=== PATIENT | female | born 1980 | race Caucasian/White ===

== ENCOUNTER → 2019-12-31 10:54 | Outpatient (CLI) | payer MEDICAID, SELFPAY ==
[2019-12-31 14:07] LABS: Absolute Lymphocyte Count 2.48 X10^3/uL (0.83-4.51); Absolute Neutrophil Count 7.2 X10^3/uL (2.0-7.7); Basophil# 0.04 X10^3/uL; Basophil% 0.4 % (0-1); Eosinophil# 0.11 X10^3/uL; Hematocrit 39.2 % (37-47); Hemoglobin 12.8 g/dL (12.0-15.0); Lymphocyte # 2.48 X10^3/ul (4.0); Lymphocyte % 23.4 % (19-41); Mean Corp Hgb Conc 32.7 g/dL (32-36); Mean Corpuscular Hgb 30.9 pg (27.0-32.0); Mean Corpuscular Volume 94.7 fL (81-99); Mean Platelet Vol. 11.8 fl (6.2-12.0); Monocyte# 0.72 X10^3/uL; Monocyte% 6.8 % (0-10); NRBC Flagged by Analyzer 0 % (0-5); Neutrophil # 7.18 X10^3/uL (2.7-7.7); Neutrophil % 67.9 % (47-70); Platelet Count 208 K/mm3 (150-450); RBC Distribution Width SD 41.8 fl (35.1-43.9); Red Blood Count 4.14 M/mm3 (4.2-5.4); White Blood Count 10.6 K/mm3 (4.4-11.0)
[2019-12-31 14:15] LABS: Color, Urine Yellow (Yellow); Glucose, Dipstick Normal (Normal); Ketone-Dipstick Negative (Negative); Leukocyte Esterase-Dipstick Negative /ul (Negative); Nitrite-Dipstick Negative (Negative); Occult Blood-Urine Negative /ul (Negative); Protein-Dipstick Negative (Negative); Specific Gravity, Urine 1.015 (1.002-1.030); Urine Bilirubin Dipstick Negative (Negative); Urine Clarity Sl. Cloudy (Clear); Urine Urobilinogen Normal (Normal); Urine pH 6.5 (5.0 - 8.0)
[2019-12-31 14:24] LABS: Amphetamine Urine VISTA NEGATIVE (<1000 ng/mL); Barbiturate Urine VISTA NEGATIVE (< 200 ng/mL); Benzodiazepine Urine VISTA NEGATIVE (< 200 ng/mL); Cocaine Urine VISTA NEGATIVE (< 300 ng/mL); Ecstacy Urine VISTA NEGATIVE (< 500 ng/mL); Methadone Urine VISTA NEGATIVE (< 300 ng/mL); PCP Urine VISTA NEGATIVE (< 25 ng/mL); THC Urine VISTA POSITIVE (< 50 ng/mL); Vista UDS pH Range 6
[2019-12-31 15:15] LABS: Thyroid Stim Hormone (TSH) 1.63 uIU/mL (0.358-3.74)
[2019-12-31 16:19] LABS: Chlamydia Trachomatis by PCR Negative (Negative); Neisserai gonorrhoeae by PCR Negative (Negative); Probe Check PASS; Sample Adequacy Control PASS; Specimen Processing Control PASS
[2020-01-01 10:34] LABS: HIV - WCH Non-Reactive (Nonreactive); Hepatitis B Surface Antigen Non-Reactive (Nonreactive); Hepatitis C Antibody Non-Reactive (Nonreactive); Rubella IgG 23.2 IU/mL
[2020-01-07 02:00] LABS: Prenatal RPR NONREACTIVE (NONREACTIVE)
== END ==
PROVIDERS: Visit Provider Obstetrics & Gynecology
DX: Z34.81 Encounter for supervision of other normal pregnancy, first trimester (principal)
CPT/HCPCS: 36415; 80307; 81002; 84443; 85025; 86703; 86762; 86803; 87340; 87491; 87591

== ENCOUNTER → 2020-04-22 | Outpatient (CLI) | payer MEDICAID, SELFPAY ==
[2020-04-22 11:28] LABS: Hemoglobin 11.4 g/dL (12.0-15.0); Mean Corp Hgb Conc 31.7 g/dL (32-36); Mean Corpuscular Hgb 29.7 pg (27.0-32.0); Mean Corpuscular Volume 93.8 fL (81-99); Mean Platelet Vol. 11.2 fl (6.2-12.0); Platelet Count 191 K/mm3 (150-450); RBC Distribution Width CV 12.8 % (11.6-14.6); RBC Distribution Width SD 43.5 fl (35.1-43.9); Red Blood Count 3.84 M/mm3 (4.2-5.4); White Blood Count 8.5 K/mm3 (4.4-11.0)
[2020-04-22 11:37] LABS: Glucose Challenge Gest 1H 50g 119 mg/dL (70-140)
== END | disposition home or self-care (01) ==
PROVIDERS: Visit Provider Obstetrics & Gynecology
DX: Z34.82 Encounter for supervision of other normal pregnancy, second trimester (principal)
CPT/HCPCS: 36415; 82950; 85027

== ENCOUNTER 2020-05-11 10:30 | Emergency (ER) | payer MEDICAID, SELFPAY ==
[2020-05-11 10:31] VITALS: BP 133/77; PULSE 83; RESP 16; TEMP 35.9; O2SAT 99; BMI 31.3
--- NOTE | 2020-05-11 10:56 | ED.VIS.DENTA ---
History of Present Illness Chief Complaint: Dental Informant: Patient Onset: Days Context: Sudden Onset Timing: Continuous Quality: Pain and facial swelling Location: Tooth #12 Current Severity: Mild Maximum Severity: Severe Worsened by: Cold liquids Associated Symptoms: Fever, Facial Swellling, - - Erythema left side of face Narrative: Patient is a 40-year-old woman who is 30 weeks gestation and presents because of dental pain that has not improved that is associated with facial swelling and redness that was not noted yesterday when she was seen by dentist. She had dental x-rays are revealed infection involving tooth #12. She denies difficulty opening or closing her mouth completely. She denies change in voice. She denies difficulty breathing. She has no history medic fever, heart murmur, SBE or being immune suppressed. She states that she was told she will need root canal. Dentist was hoping to perform this after she delivers. Prior similar symptoms: Yes Recent Illness/Hospitalization: Yes - Past Medical History (1) Dental abscess Status: Acute Past Medical History - Allergies and Home Meds Allergies/Adverse Reactions: Allergies No Known Allergies Allergy (Verified 05/11/20 10:31) Primary Care Physician: Care Physician,No Primary [Primary Care Provider] - Prior records reviewed: No Surgical History: noncontributory Lives: With Family Smoking Status: Unknown if ever smoked Alcohol: None Drugs: None Review of Systems General: Denies: Chills, Fever, Malaise, Subjective, Sweats Eyes: Denies: Visual changes - bilaterally, Blurred Vision - bilaterally ENT: Denies: Bilateral ear pain, Rhinorrhea, Sore throat Cardiovascular: Denies: Chest pain, Palpitations Respiratory: Denies: Dyspnea, Cough, Dyspnea on exertion Gastrointestinal: Denies: Nausea, Vomiting Musculoskeletal: Denies: Myalgias, Arthralgias, Neck pain Skin: Reports: Rash. Denies: Abscess, Abrasions, Wounds Neurological: Denies: Headache, Weakness, Parasthesia, Numbness Psych: Denies: Depression, Anxiety Hematologic: Denies: Easy bruising, Easy bleeding Allergy: Denies: Uticaria, Swelling of the mouth, Swelling of the tongue Physical Exam Vital Signs/Narrative: Vital Signs Temp Pulse Resp BP Pulse Ox 05/11/20 10:31 96.6 F L 83 16 133/77 H 99 Inital Vital Signs reviewed: Yes General: Well nourished, Well developed Head: Normocephalic, Atraumatic, - - There is swelling of the left side of the face with erythema. ENT: Moist mucous membranes, No nasal trauma, No rhinorrhea, Sinus tenderness - Maxillary, TM's clear. Negative for: Nasal congestion, TM erythema left, TM erythema right Mouth/Throat: Normal inspection lips/gums, Normal oral mucosa, No focal abscess, Normal posterior oropharynx, No sublingual edema, Normal Stensen's duct, Dentral fracture, Focal dental decay, -. Negative for: No dental tenderness, Apthous ulcer, Dental trauma, Dental avulsion, Focal gum swelling, Gingivitis Neck: Supple, No lymphadenopathy, Nontender, No JVD Cardiovascular: Regular rate, Regular rhythm, No murmurs, Normal S1, Normal S2 Respiratory: No distress, CTA bilaterally, Chest nontender Rectal: Deferred Back: Nontender, Normal Inspection Extremities: Nontender, No edema Skin: Normal color, Rash - Left-sided facial erythema and soft tissue swelling Neurological: Alert, Oriented x3, Cranial nerves II-XII grossly intact, Normal Strength, Normal Sensation, Normal Gait Psychological: Normal affect Diagnostic/Tx/Re-eval Laboratory Results 05/11/20 05/11/20 10:55 10:55 WBC 11.0 RBC 3.92 L Hgb 11.6 L Hct 36.1 L MCV 92.1 MCH 29.6 MCHC 32.1 RDW Std Deviation 43.8 RDW Coeff of Lupe 13.0 Plt Count 169 MPV 10.5 Immature Gran % (Auto) 0.500 Neut % (Auto) 80.9 H Lymph % (Auto) 12.2 L Tompkins % (Auto) 5.8 Eos % (Auto) 0.3 Baso % (Auto) 0.3 Absolute Neuts (auto) 8.9 H Absolute Lymphs (auto) 1.34 Nucleated RBC % 0 Sodium 137 Potassium 3.8 Chloride 106 Carbon Dioxide 24.0 Anion Gap 7 BUN 5 L Creatinine 0.68 Estim Creat Clear Calc 96.86 Est GFR (MDRD) Af Amer 125 Est GFR (MDRD) Non-Af 103 BUN/Creatinine Ratio 7.4 L Glucose 144 H Calcium 8.9 CBC and basic metabolic panel are unremarkable except for a blood sugar of 144. - Medical Decision Making She has a dental abscess. Dr. Shin was paged. He apparently does not care for patients with care source any longer. Plan is IV antibiotics blood work. If CBC is markedly elevated will contact dentist that saw her yesterday otherwise will have her continue antibiotics and prescribe pain medicine. NSAIDs are contraindicated since she is in her third trimester . Spoke with the dentist who cared for her yesterday [facility]. Contacted the [place] office at [phone]. If patient gets worse and has difficulty opening her mouth or difficulty swallowing she is to go to the nearest emergency room with referral to oral maxillofacial surgery. If she gets worse and there is no compromise of airway will be seen at the [facility] office. Regardless she would like patient to contact them [place] office tomorrow where she will be to determine how she is doing and determine her treatment options i.e. endodontal surgery versus tooth extraction. ED Disposition - Plan for ED Patient: Disposition: Home or Assisted Living Diagnosis: Apical abscess Instructions: Dental Abscess Prescriptions: Hydrocodone Bitart/Apap 5-325 [[place] 5MG-325MG] 1 tab PO Q6H PRN PRN 3 Days #10 tab PRN Reason: Pain Prescription Printed Referrals: Care Physician,No Primary [Primary Care Provider] - Additional Instructions: 1. Contact your dentist at the [facility] office tomorrow. 2. If there is no improvement and you are having difficulty swallowing or opening your mouth go to the nearest emergency department.
[2020-05-11 11:09] LABS: Absolute Lymphocyte Count 1.34 X10^3/uL (0.83-4.51); Absolute Neutrophil Count 8.9 X10^3/uL (2.0-7.7); Basophil# 0.03 X10^3/uL; Basophil% 0.3 % (0-1); Eosinophil# 0.03 X10^3/uL; Eosinophils% 0.3 % (0-5); Hematocrit 36.1 % (37-47); Hemoglobin 11.6 g/dL (12.0-15.0); Lymphocyte # 1.34 X10^3/ul (4.0); Lymphocyte % 12.2 % (19-41); Mean Corp Hgb Conc 32.1 g/dL (32-36); Mean Corpuscular Hgb 29.6 pg (27.0-32.0); Mean Corpuscular Volume 92.1 fL (81-99); Mean Platelet Vol. 10.5 fl (6.2-12.0); Monocyte# 0.64 X10^3/uL; Monocyte% 5.8 % (0-10); NRBC Flagged by Analyzer 0 % (0-5); Neutrophil # 8.85 X10^3/uL (2.7-7.7); Neutrophil % 80.9 % (47-70); Platelet Count 169 K/mm3 (150-450); RBC Distribution Width SD 43.8 fl (35.1-43.9); Red Blood Count 3.92 M/mm3 (4.2-5.4)
[2020-05-11 11:24] LABS: Anion Gap 7 (5-15); BUN 5 mg/dL (7-18); BUN/Creat Ratio 7.4 RATIO (10-20); Calcium,Total 8.9 mg/dL (8.5-10.1); Chloride 106 mmol/L (98-107); Creatinine, Serum 0.68 mg/dL (0.55-1.02); EST Glomerular Filtration Rate 103 mL/min (>60); Est Glom Filt Rate - Afr Amer 125 mL/min (>60); Estimated Creatinine Clearance 96.86 ml/min; Glucose 144 mg/dL (74-106); Potassium 3.8 mmol/L (3.5-5.1); Sodium Level 137 mmol/L (136-145)
[2020-05-11] MEDS: Morphine 4 MG/ML Syringe IV (11:26)
--- NOTE | 2020-05-11 11:52 | CM.ED ---
Social Work Consult: No PCP Informant: Self Referral Met with patient in room. Introduced self and social insurance administrator role. Patient agreeable to speak with this social insurance administrator. This social insurance administrator broached topic of PCP for patient. Patient confirming to not have an active PCP for the past year. Patient reports intentions of setting up PCP but then I got . Patient reports to be 30 weeks and to be following with Dr. Kaye Padilla with [facility]. Patient reports intent to set up PCP after delivery of patient. This social insurance administrator broached topic of supplies/patient needs. Patient reports to have needed supplies for . Patient states that was planned. Patient open to this social insurance administrator providing patient with list of in-network PCP's for patient. This social insurance administrator provided patient with list of PCP's. Active support and listening provided. Patient denies any community needs/concerns. Patient with positive and pleasant affect. Madi SANFORD, DAVE-S
[2020-05-11 12:31] VITALS: BP 119/75; PULSE 84; RESP 16; TEMP 37; O2SAT 98
== END 2020-05-11 12:34 | disposition home or self-care (01) ==
PROVIDERS: Emergency Provider Emergency Medicine
DX: O26.893 Other specified pregnancy related conditions, third trimester (principal); K04.7 Periapical abscess without sinus; Z3A.30 30 weeks gestation of pregnancy
CPT/HCPCS: 80048; 85025; 96365; 96375; 99282; A4216; J0295

== ENCOUNTER → 2020-06-23 | Outpatient (CLI) | payer MEDICAID, SELFPAY | END | disposition home or self-care (01) | PROVIDERS: Referring Provider Student in an Organized Health Care Education/Training Program; Visit Provider Student in an Organized Health Care Education/Training Program | DX: Z36.85 Encounter for antenatal screening for Streptococcus B (principal) | CPT/HCPCS: 87081 ==

== ENCOUNTER 2020-07-25 03:00 | Inpatient (IN) | payer MEDICAID, SELFPAY ==
[2020-07-25] VITALS (47 sets, daily range): BP systolic 113–147; BP diastolic 59–91; PULSE 63–103; TEMP 36.4–37.4; O2SAT 90–99; BMI 32.5
[2020-07-25 02:58] LABS: ROM Internal Control Test YES-OK TO RESULT pt. (Internal QC)
[2020-07-25 02:59] LABS: ROM Patient Test POSITIVE (Negative)
[2020-07-25] MEDS: Lactated Ringers 1,000 ML 50 ML IV (03:33)
[2020-07-25 03:51] LABS: Absolute Lymphocyte Count 2.36 X10^3/uL (0.83-4.51); Absolute Neutrophil Count 6.9 X10^3/uL (2.0-7.7); Basophil# 0.02 X10^3/uL; Basophil% 0.2 % (0-1); Eosinophil# 0.06 X10^3/uL; Eosinophils% 0.6 % (0-5); Hematocrit 36.6 % (37-47); Lymphocyte # 2.36 X10^3/ul (4.0); Lymphocyte % 23.2 % (19-41); Mean Corp Hgb Conc 32.8 g/dL (32-36); Mean Corpuscular Hgb 29.2 pg (27.0-32.0); Mean Corpuscular Volume 89.1 fL (81-99); Monocyte# 0.74 X10^3/uL; Monocyte% 7.3 % (0-10); NRBC Flagged by Analyzer 0 % (0-5); Neutrophil # 6.93 X10^3/uL (2.7-7.7); Neutrophil % 68.2 % (47-70); Platelet Count 144 K/mm3 (150-450); RBC Distribution Width CV 13.2 % (11.6-14.6); RBC Distribution Width SD 42.8 fl (35.1-43.9); Red Blood Count 4.11 M/mm3 (4.2-5.4); White Blood Count 10.2 K/mm3 (4.4-11.0)
[2020-07-25 05:03] LABS: Amphetamine Urine VISTA NEGATIVE (<1000 ng/mL); Barbiturate Urine VISTA NEGATIVE (< 200 ng/mL); Benzodiazepine Urine VISTA NEGATIVE (< 200 ng/mL); Cocaine Urine VISTA NEGATIVE (< 300 ng/mL); Ecstacy Urine VISTA NEGATIVE (< 500 ng/mL); Methadone Urine VISTA NEGATIVE (< 300 ng/mL); PCP Urine VISTA NEGATIVE (< 25 ng/mL); THC Urine VISTA NEGATIVE (< 50 ng/mL); Vista UDS pH Range 6
--- NOTE | 2020-07-25 05:07 | HP.PCM_ITS ---
History and Physical Chief complaint: Leakage of fluid History of present illness: 40-year-old G3, P1 at 40 weeks and 4 days with BABAK: 07/21/2020 by LMP arrives with leakage of clear fluid. Denies headache, visual changes, chest pain, shortness of breath, nausea vomiting, right upper quadrant pain. Patient states good movement. Obstetrical complications include AMA Obstetric history: G1: SAB 10/13/2017 G2: 10/14/2009 G3: Current Past medical history: Anxiety depression Past surgical history: Left hand, left knee Medications: vitamin Allergies: No known drug allergies Social history: Former smoker, denies alcohol or drug use Review of systems: Besides the above pertinent positives a full review of systems was performed and found to be negative Physical exam: Vital Signs Temp Pulse BP Pulse Ox 07/25/20 03:57 75 98 07/25/20 03:56 98.4 F 72 121/70 H 07/25/20 02:39 73 135/77 H General: Normal-appearing no acute distress HEENT: Normocephaly atraumatic no cervical lymphadenopathy Cardiac: Regular rate and rhythm no murmurs rubs or gallops Respiratory: Clear to auscultation bilaterally no wheeze rales or crackles Abdomen: Soft nontender gravid heart rate tracin/moderate variability/positive accelerations/negative decelerations toco: Every 3 minutes Extremities: No peripheral edema normal peripheral pulses Psych: Normal affect normal demeanor nonpressured speech Mom's Microbiology 07/25/20 03:35 Mucosa - Nose SARS-CoV-2 Antigen (Rapid) - Final Mom's Labs & Results 07/25/20 07/25/20 07/25/20 02:33 03:34 03:34 WBC 10.2 RBC 4.11 L Hgb 12.0 Hct 36.6 L MCV 89.1 MCH 29.2 MCHC 32.8 RDW Std Deviation 42.8 RDW Coeff of Lupe 13.2 Plt Count 144 L MPV 12.0 Immature Gran % (Auto) 0.500 Neut % (Auto) 68.2 Lymph % (Auto) 23.2 Guthrie % (Auto) 7.3 Eos % (Auto) 0.6 Baso % (Auto) 0.2 Absolute Neuts (auto) 6.9 Absolute Lymphs (auto) 2.36 Nucleated RBC % 0 Vag Amniotic Fld Detect POSITIVE H Urine Opiates Screen Urine Methadone Screen Ur Barbiturates Screen Ur Phencyclidine Scrn Ur Amphetamines Screen U Methamphetamin-MDMA U Benzodiazepines Scrn Urine Cocaine Screen U Cannabinoids Screen Ur Drug Screen Comment Blood Type O POSITIVE Antibody Screen NEGATIVE 07/25/20 04:00 WBC RBC Hgb Hct MCV MCH MCHC RDW Std Deviation RDW Coeff of Lupe Plt Count MPV Immature Gran % (Auto) Neut % (Auto) Lymph % (Auto) Guthrie % (Auto) Eos % (Auto) Baso % (Auto) Absolute Neuts (auto) Absolute Lymphs (auto) Nucleated RBC % Vag Amniotic Fld Detect Urine Opiates Screen NEGATIVE Urine Methadone Screen NEGATIVE Ur Barbiturates Screen NEGATIVE Ur Phencyclidine Scrn NEGATIVE Ur Amphetamines Screen NEGATIVE U Methamphetamin-MDMA NEGATIVE U Benzodiazepines Scrn NEGATIVE Urine Cocaine Screen NEGATIVE U Cannabinoids Screen NEGATIVE Ur Drug Screen Comment Blood Type Antibody Screen Labs Blood Type: O RH: NEGATIVE RPR/VDRL/Syphilis Nonreactive Rubella status Immune HbSAg Negative Date Done: 12/31/19 Chlamydia Negative Gonorrhea Negative HIV/AIDS Non-Reactive Group B Strep: Negative Assessment plan: 40-year-old at 40 weeks and 4 days with spontaneous rupture membranes -[facility] -Will augment with Pitocin if no cervical change in 2 to 4 hours -Routine orders -Anesthesia to see
[2020-07-25] MEDS: Oxytocin 30 units/NS 500 ml 30 UNITS/500 ML IV.SOLN IV (07:06)
[2020-07-25] MEDS: fentaNYL 100 MCG/2 ML Ampul IV ×2 (10:46→13:45)
--- NOTE | 2020-07-25 11:58 | PCM.PN.BLA ---
Progress Note Pt getting more uncomfortable with contractions. CE unchanged. FHR cat I. Continue titrating pitocin. Plan for FB STROKE Vital Signs/Narrative: Vital Signs Temp Pulse BP 07/25/20 10:52 68 123/66 H 07/25/20 09:48 98.5 F 63 120/71 07/25/20 09:11 81 133/65 H 07/25/20 08:37 80 122/76 H 07/25/20 08:06 72 128/75 H
[2020-07-25] MEDS: Lactated Ringers 500 ML 999 ML IV (15:45)
[2020-07-25] MEDS: fentaNYL-bupivacaine (epidural) 100 ML BAG EPIDURAL ×2 (16:21→20:30)
[2020-07-25] MEDS: Ondansetron 4 MG/2 ML Vial IV ×2 (16:47→20:47)
[2020-07-25] MEDS: Lactated Ringers 1,000 ML 200 ML IV ×2 (16:48→21:47)
[2020-07-25] MEDS: 0.9% Saline Lock 10 ML Syringe IV (21:45)
[2020-07-25] MEDS: Oxytocin 30 units/NS 500 ml 30 UNITS/500 ML IV.SOLN 334 UNITS IV (23:03)
--- NOTE | 2020-07-25 23:13 | PCM.OPRPT ---
Vaginal Delivery Maternal Presentation: Spontaneous Rupture of Membranes Amniotic Membrane Rupture Type: Spontaneous at home Amniotic Fluid Description: Clear Final BABAK: 07/21/20 Final BABAK Source: LMP Gestational age: 40 Weeks and 4 Days Date of Procedure: 07/25/20 Pre-Operative Diagnosis: Prince intrauterine Post-Operative Diagnosis: Prince intrauterine Surgery/ Procedure Performed: Spontaneous Vaginal Delivery Type of Anesthesia: Epidural Description of Procedure: Spontaneous vaginal delivery of viable female. Nuchal cord x1, loose, reduced. Baby to mom. Cord clamped and cut. Spontaneous delivery of placenta. First degree perineal laceration repaired with figure of eight stitches, hemostatic. EBL 350cc. APGARS 8/9.
[2020-07-26] VITALS (15 sets, daily range): BP systolic 96–135; BP diastolic 57–77; PULSE 66–80; RESP 15–18; TEMP 36.3–37.1; O2SAT 97–98
[2020-07-26] MEDS: Acetaminophen 500 MG Tablet 1000 MG PO ×3 (01:32→18:05)
[2020-07-26] MEDS: 0.9% Saline Lock 10 ML Syringe IV (01:44)
--- NOTE | 2020-07-26 03:40 | NURSING ---
0325- This RN received report from Armando To, delivery and installation subcontractor nurse.
[2020-07-26] MEDS: Ibuprofen 600 MG Tablet PO ×3 (04:25→19:32)
--- NOTE | 2020-07-26 08:11 | PCM.PN.OB ---
Subjective: Patient without complaints. Breast-feeding going well. Plans to stay until tomorrow. - Physical Exam Vitals/I&O's: Vital Signs Temp Pulse Resp BP Pulse Ox 98.7 F 67 18 135/65 H 97 07/26/20 03:30 07/26/20 03:30 07/26/20 03:30 07/26/20 03:30 07/26/20 03:30 Oxygen Delivery Method Room Air Weight: 195 lb 3.2 oz Body Mass Index (BMI) 32.5 Intake and Output for Last 24 Hours 07/24/20 07/25/20 07/26/20 23:59 23:59 23:59 Intake Total 4451.65 / 4451.65 327.43 / 327.43 Output Total 1500 / 1500 200 / 200 Balance 2951.65 / 2951.65 127.43 / 127.43 Microbiology Past 72 Hours 07/25/20 03:35 Mucosa - Nose SARS-CoV-2 Antigen (Rapid) - Final Current Medications Acetaminophen (Acetaminophen 500 Mg Tablet) 1,000 mg PO Q8H PRN PRN PRN Reason: Pain Score 1-3 Last Admin: 07/26/20 01:32 Dose: 1,000 mg Documented by: Bisacodyl (Bisacodyl 10 Mg Suppository) 10 mg RECTAL UD PRN PRN Reason: If no BM Dibucaine (Dibucaine 30 Gm Tube) 1 applic TOPICAL TID PRN PRN; Protocol PRN Reason: Discomfort Hydrocortisone (Hydrocortisone 2.5% Crm) 1 applic TOPICAL TID PRN PRN; Protocol PRN Reason: Discomfort Ibuprofen (Ibuprofen 600 Mg Tablet) 600 mg PO Q6H PRN PRN PRN Reason: Pain Score 1-3 Last Admin: 07/26/20 04:25 Dose: 600 mg Documented by: Methylergonovine Maleate (Methylergonovine 0.2 Mg/Ml Ampul) 0.2 mg IM X1 PRN PRN Reason: Excess bleeding/uterine atony Ondansetron HCl (Ondansetron 4 Mg/2 Ml Vial) 4 mg IV Q4H PRN PRN PRN Reason: Nausea Senna/Docusate Sodium (Senna/Docusate Sodium 1 Tablet) 1 - 2 tablet PO DAILY PRN PRN PRN Reason: Constipation Simethicone (Simethicone 80 Mg Tablet) 80 mg PO PCHS PRN PRN Reason: Indigestion/Stomach pain Sodium Chloride (0.9% Saline Lock 10 Ml Syringe) 5 - 15 ml IV UD PRN PRN Reason: SALINE FLUSH Last Admin: 07/26/20 01:44 Dose: 10 ml Documented by: Zolpidem Tartrate (Zolpidem Tartrate 5 Mg Tablet) 5 mg PO QHS PRN PRN PRN Reason: Insomnia Medical Necessity - Tobacco Use Smoking Status: Former smoker Assessment/Plan All Active Problems Dental abscess (Acute) Doing well post day #1 status post routine spontaneous vaginal delivery. Continuing present care.
[2020-07-26] MEDS: Senna/Docusate Sodium 1 Tablet PO (08:43)
[2020-07-27] MEDS: Ibuprofen 600 MG Tablet PO ×2 (01:39→08:07)
[2020-07-27 01:42] VITALS: BP 111/57; PULSE 73; RESP 17
[2020-07-27] MEDS: Acetaminophen 500 MG Tablet 1000 MG PO ×2 (03:02→12:03)
[2020-07-27] MEDS: Senna/Docusate Sodium 1 Tablet PO (08:07)
[2020-07-27 09:07] VITALS: BP 132/80; PULSE 75; RESP 17; TEMP 36.8; O2SAT 98
--- NOTE | 2020-07-27 09:25 | PCM.PN.OB ---
Subjective: Patient without complaints. Breast-feeding going well. Pain well controlled with Tylenol and ibuprofen. Ready to go home. - Physical Exam Vitals/I&O's: Vital Signs Temp Pulse Resp BP Pulse Ox 98.2 F 75 17 132/80 H 98 07/27/20 09:07 07/27/20 09:07 07/27/20 09:07 07/27/20 09:07 07/27/20 09:07 Oxygen Delivery Method Room Air Weight: 195 lb 3.2 oz Body Mass Index (BMI) 32.5 Intake and Output for Last 24 Hours 07/25/20 07/26/20 07/27/20 23:59 23:59 23:59 Intake Total 4451.65 / 4451.65 327.43 / 327.43 Output Total 1500 / 1500 200 / 200 Balance 2951.65 / 2951.65 127.43 / 127.43 Microbiology Past 72 Hours 07/25/20 03:35 Mucosa - Nose SARS-CoV-2 Antigen (Rapid) - Final Current Medications Acetaminophen (Acetaminophen 500 Mg Tablet) 1,000 mg PO Q8H PRN PRN PRN Reason: Pain Score 1-3 Last Admin: 07/27/20 03:02 Dose: 1,000 mg Documented by: Bisacodyl (Bisacodyl 10 Mg Suppository) 10 mg RECTAL UD PRN PRN Reason: If no BM Dibucaine (Dibucaine 30 Gm Tube) 1 applic TOPICAL TID PRN PRN; Protocol PRN Reason: Discomfort Hydrocortisone (Hydrocortisone 2.5% Crm) 1 applic TOPICAL TID PRN PRN; Protocol PRN Reason: Discomfort Ibuprofen (Ibuprofen 600 Mg Tablet) 600 mg PO Q6H PRN PRN PRN Reason: Pain Score 1-3 Last Admin: 07/27/20 08:07 Dose: 600 mg Documented by: Methylergonovine Maleate (Methylergonovine 0.2 Mg/Ml Ampul) 0.2 mg IM X1 PRN PRN Reason: Excess bleeding/uterine atony Ondansetron HCl (Ondansetron 4 Mg/2 Ml Vial) 4 mg IV Q4H PRN PRN PRN Reason: Nausea Senna/Docusate Sodium (Senna/Docusate Sodium 1 Tablet) 1 - 2 tablet PO DAILY PRN PRN PRN Reason: Constipation Last Admin: 07/27/20 08:07 Dose: 2 tablet Documented by: Simethicone (Simethicone 80 Mg Tablet) 80 mg PO PCHS PRN PRN Reason: Indigestion/Stomach pain Sodium Chloride (0.9% Saline Lock 10 Ml Syringe) 5 - 15 ml IV UD PRN PRN Reason: SALINE FLUSH Last Admin: 07/26/20 01:44 Dose: 10 ml Documented by: Throat Lozenges (Benzocaine/Lanolin/Aloe Vera 1 Applic Each) 1 applic TOPICAL TID PRN PRN; Protocol PRN Reason: Pain/Inflammation Last Admin: 07/26/20 21:18 Dose: 1 applic Documented by: Zolpidem Tartrate (Zolpidem Tartrate 5 Mg Tablet) 5 mg PO QHS PRN PRN PRN Reason: Insomnia Medical Necessity - Tobacco Use Smoking Status: Former smoker Assessment/Plan All Active Problems Dental abscess (Acute) Doing well day #2 status post routine spontaneous vaginal delivery. Will discharge to home with routine instructions.
--- NOTE | 2020-07-27 09:27 | DCINST_ITS ---
Discharge Diet: No Restrictions Discharge Activity: May Shower, May Take a Tub Bath May resume sexual activity in: 4-6 weeks Additional Activity Instructions:: Nothing in the vagina for 4-6 weeks. You may return to work/school in 6 weeks. Call your doctor if you observe: Inability to urinate, Inability to have a bowel movement, Using more than one pad per hour Additional Instructions: If you experience any of the following, contact your healthcare provider. * Bleeding that soaks a pad every hour for 2 hours * Fever 100.4 or higher * Unrelieved incision or abdominal pain * Swelling, redness, discharge or bleeding from your incision or episiotomy site * Your incision begins to separate * Problems urinating (including inability to urinate or burning while urinating). * Visual changes * Severe headache * Flu-like symptoms * Pain or redness in one of both of your breasts * Pain, warmth, tenderness or swelling in your legs, especially the calf area * Frequent nausea and vomiting * Symptoms of depression or anxiety If you experience any of the following, call 911 or go to the nearest Emergency Room. * Chest pain * Problems breathing * Seizure activity * Partial or complete paralysis of a body part, slurred speech, weakness or drooping of the face, or a sudden inability to walk or hold your balance Allergies/Adverse Reactions: Allergies No Known Allergies Allergy (Verified 05/11/20 10:31) Please Follow Up With: Lev Del Angel MD - [phone] When: Call to make an appointment with your doctor in 6 weeks. Primary Care Physician: Care Physician,No Primary [Primary Care Provider] - Test Results: Test results from this visit will be discussed in further detail at your follow- up appointment, if applicable.
--- NOTE | 2020-07-27 09:27 | PCM.DCVAG ---
Discharge Diet: No Restrictions Discharge Activity: May Shower, May Take a Tub Bath May resume sexual activity in: 4-6 weeks Additional Activity Instructions:: Nothing in the vagina for 4-6 weeks. You may return to work/school in 6 weeks. Call your doctor if you observe: Inability to urinate, Inability to have a bowel movement, Using more than one pad per hour Additional Instructions: If you experience any of the following, contact your healthcare provider. Bleeding that soaks a pad every hour for 2 hours Fever 100.4 or higher Unrelieved incision or abdominal pain Swelling, redness, discharge or bleeding from your incision or episiotomy site Your incision begins to separate Problems urinating (including inability to urinate or burning while urinating). Visual changes Severe headache Flu-like symptoms Pain or redness in one of both of your breasts Pain, warmth, tenderness or swelling in your legs, especially the calf area Frequent nausea and vomiting Symptoms of depression or anxiety If you experience any of the following, call 911 or go to the nearest Emergency Room. Chest pain Problems breathing Seizure activity Partial or complete paralysis of a body part, slurred speech, weakness or drooping of the face, or a sudden inability to walk or hold your balance Allergies/Adverse Reactions: Allergies No Known Allergies Allergy (Verified 05/11/20 10:31) Please Follow Up With: Lev Del Angel MD - [phone] When: Call to make an appointment with your doctor in 6 weeks. Primary Care Physician: Care Physician,No Primary [Primary Care Provider] - Test Results: Test results from this visit will be discussed in further detail at your follow-up appointment, if applicable.
== END 2020-07-27 12:20 | disposition home or self-care (01) | DRG 560 ==
LOC: WPOUT 03:03 → WP 03:03
PROVIDERS: Admitting Provider Obstetrics & Gynecology; Visit Provider Obstetrics & Gynecology
DX: O48.0 Post-term pregnancy (principal); Z3A.40 40 weeks gestation of pregnancy; O69.81X0 Labor and delivery complicated by cord around neck, without compression, not applicable or unspecified; O70.0 First degree perineal laceration during delivery; Z37.0 Single live birth
CPT/HCPCS: 59025; 59050; 80307; 84112; 85025; 86850; 86900; 86901; 87426; 99218; J7120; A4216; G0378; J2405